=== PATIENT | female | born 1955 ===

== ENCOUNTER 2024-09-03 22:17 | Emergency (ER) | payer MEDICARE, BC ==
[2024-09-03] MEDS: Ketorolac 30 MG/ML SDV IM ONE (23:36)
[2024-09-03] MEDS: Take Home: Cyclobenzaprine 10 MG Tab, 4 Tab Pack PO ONE (23:56)
== END 2024-09-04 00:33 | disposition home or self-care (01) ==
LOC: DL.ED 22:17
DX: M62.830 Muscle spasm of back (principal); M53.3 Sacrococcygeal disorders, not elsewhere classified
CPT/HCPCS: 72100; 96372; 99283; 99284; A9270; J1885

== ENCOUNTER 2024-11-08 07:20 | Day surgery (SDC) | payer MEDICARE, BC ==
[2024-11-08] MEDS ORDERED: Lactated Ringers 1,000 ML IV ONE (07:21)
[2024-11-08] MEDS ORDERED: Propofol 200 MG/20 ML SDV IV ONE (07:21)
[2024-11-08] MEDS: Lactated Ringers 1,000 ML IV SCH (07:45)
[2024-11-08] MEDS ORDERED: Propofol 200 MG/20 ML SDV ONE (09:38)
== END 2024-11-08 10:05 | disposition home or self-care (01) ==
LOC: DL.ENDO 07:20
PROVIDERS: ATTEND Internal Medicine Gastroenterology
DX: Z12.11 Encounter for screening for malignant neoplasm of colon (principal); F12.90 Cannabis use, unspecified, uncomplicated; F41.1 Generalized anxiety disorder; K21.9 Gastro-esophageal reflux disease without esophagitis; Z88.5 Allergy status to narcotic agent; Z79.899 Other long term (current) drug therapy
CPT/HCPCS: 00812; J2704; J7120